=== PATIENT | female | born 1980 | race Two or more races ===

== ENCOUNTER 2025-02-09 08:25 | Day surgery (SDC) | payer MEDICAID, SELFPAY ==
[2025-02-08 12:22] LABS: HCG Qualitative,Urine Negative
[2025-02-08 13:23] VITALS: BMI 39.7
[2025-02-09] VITALS (12 sets, daily range): BP systolic 108–153; BP diastolic 63–87; PULSE 91–112; RESP 12–20; TEMP 36.3–36.7; O2SAT 94–100; BMI 40.7
[2025-02-09] MEDS: RINGERS LACTATED 1000 ML 1,000 ML 125 ML IV (10:05)
[2025-02-09] MEDS: LIDOCAINE JELLY 2% (Urojet) 10 ML TUBE TOP (10:07)
[2025-02-09] MEDS: fentaNYL CIT INJ 50 mCg/ML AMP 2ML (ASD USE ONLY) IVP (10:11)
[2025-02-09] MEDS: MIDAZOLAM INJ 1 MG/ML VIAL 2 ML (ASD USE ONLY) 2 MG IVP (10:16)
== END 2025-02-09 11:05 | disposition home or self-care (01) ==
PROVIDERS: PCP Physician Assistant; Referring Provider Internal Medicine Gastroenterology; Visit Provider Internal Medicine Gastroenterology
PROC: 0DBE8ZX Excision of Large Intestine, Via Natural or Artificial Opening Endoscopic, Diagnostic (ICD-10-PCS; CPT 45380; principal; 2025-02-09 08:15)
DX: K63.89 Other specified diseases of intestine (principal); K64.8 Other hemorrhoids
CPT/HCPCS: 45380; 81025; J1200; J2250; J3010; J7120